=== PATIENT | female | born 1980 | race Caucasian/White ===

== ENCOUNTER 2018-07-23 09:21 | Day surgery (SDC) | payer OTHER ==
[~2018-07-23 09:21] MED LIST: CEFAZOLIN 2 GM/50 ML (PMX) 50 ML IVPB; LACTATED RINGER'S 1,000 ML IV*
[2018-07-23] MEDS ORDERED: ROCURONIUM 50 MG INJ (12:48)
[2018-07-23] MEDS ORDERED: GLYCOPYRROLATE 0.4 MG INJ (12:48)
[2018-07-23] MEDS ORDERED: LIDOCAINE 2% (SDV) 5 ML INJ (12:48)
[2018-07-23] MEDS ORDERED: PROPOFOL 20 ML (12:48)
[2018-07-23] MEDS ORDERED: FENTAnyl 50 MCG/ML VIAL (12:48)
[2018-07-23] MEDS ORDERED: NEOSTIGMINE 3 MG/3 ML SYRINGE (12:48)
[2018-07-23] MEDS ORDERED: MIDAZOLAM 1 MG/ML 2 ML INJ (12:48)
[2018-07-23] MEDS ORDERED: ONDANSETRON 4 MG INJ (12:49)
[2018-07-23] MEDS ORDERED: DEXAMETHASONE 4 MG/ML 1 ML INJ (12:49)
[2018-07-23] MEDS: MEPERIDINE 50 MG INJ IV (13:23)
[2018-07-23] MEDS ORDERED: BUPIVACAINE 0.25% (MPF) 30 ML INJ (13:48)
[2018-07-23] MEDS ORDERED: ROPIVACAINE 0.5 % 30 ML VIAL (14:27)
[2018-07-23] MEDS ORDERED: HYDROmorphONE 1 MG/5 ML IV SYRINGE IV ×3 (16:11→16:30)
[2018-07-23] MEDS: HYDROmorphONE 1 MG/5 ML IV SYRINGE IV ×3 (16:23→16:38)
[2018-07-23] MEDS ORDERED: OXYCODONE/ACETAMINOPHEN (5/325) TAB PO (16:30)
[2018-07-23] MEDS ORDERED: MEPERIDINE 25 MG INJ IV (16:30)
[2018-07-23] MEDS ORDERED: LABETALOL HCL 20MG INJ IV (16:30)
[2018-07-23] MEDS ORDERED: METOCLOPRAMIDE 10 MG INJ IV (16:30)
[2018-07-23] MEDS ORDERED: ONDANSETRON 4 MG INJ IV (16:30)
[2018-07-23] MEDS ORDERED: hydrALAzine 20 MG INJ IV (16:30)
[2018-07-23] MEDS ORDERED: FENTAnyl 50 MCG/ML VIAL IV ×3 (16:30)
[2018-07-23] MEDS: OXYCODONE/ACETAMINOPHEN (5/325) TAB PO (17:03)
== END 2018-07-23 17:39 | disposition home or self-care (01) ==
LOC: SDS 09:21
DX: S62.326D Displaced fracture of shaft of fifth metacarpal bone, right hand, subsequent encounter for fracture with routine healing (principal); X58.XXXD Exposure to other specified factors, subsequent encounter
CPT/HCPCS: 26615; 73140; 84703